=== PATIENT | female | born 1970 | race African-American/Black ===

== ENCOUNTER 2016-12-03 17:58 | Emergency (ER) | payer OTHER ==
[~2016-12-03] VITALS: Ht 172.7 cm; Wt 72.6 kg
[2016-12-03] MEDS ORDERED: [UNRECOGNIZED DRUG - REMARK] (18:09)
[2016-12-03] MEDS ORDERED: ONDANSETRON 4 MG/2 ML VIAL IV ONE (18:30)
[2016-12-03] MEDS ORDERED: IV NORMAL SALINE 1000 ML BAG IV ONE (18:30)
[2016-12-03] MEDS ORDERED: METOCLOPRAMIDE HCL 10 MG/2 ML VIAL IV ONE (18:30)
[2016-12-03] MEDS ORDERED: HYDROMORPHONE 1 MG/1 ML DISP.SYRIN IV ONE (18:30)
[2016-12-03] MEDS ORDERED: PANTOPRAZOLE SODIUM 40 MG VIAL IV ONE (18:30)
[2016-12-03] MEDS ORDERED: BENZTROPINE MESYLATE 2 MG/2 ML AMPUL IV ONE (18:30)
[2016-12-03 18:34] LABS: BASOPHILS # (AUTO) 0.1 K/uL (0.0-8.0); BASOPHILS % (AUTO) 0.6 % (0.0-2.0); EOSINOPHILS # (AUTO) 0.1 K/uL (0.0-0.7); EOSINOPHILS % (AUTO) 0.9 % (0.0-7.0); HEMATOCRIT 43.8 % (31.2-41.9); HEMOGLOBIN 14.8 g/dL (10.9-14.3); LYMPHOCYTES # (AUTO) 0.4 K/uL (40.0-85.0); LYMPHOCYTES % (AUTO) 3.7 % (20.5-51.5); MEAN CORPUSCULAR HEMOGLOBIN 28.8 uug (24.7-32.8); MEAN CORPUSCULAR HGB CONC 34 g/dL (32.3-35.6); MEAN CORPUSCULAR VOLUME 85.4 fL (75.5-95.3); MONOCYTES # (AUTO) 0.1 K/uL (2.0-10.0); MONOCYTES % (AUTO) 0.5 % (0.0-11.0); NEUTROPHILS # (AUTO) 11.2 K/uL (1.8-8.9); NEUTROPHILS % (AUTO) 94.3 % (38.5-71.5); PLATELET COUNT (AUTO) 332 K/uL (179-408); RED BLOOD CELL COUNT(AUTO) 5.13 MIL/uL (3.63-4.92); RED CELL DISTRIBUTION WIDTH 12.9 % (12.3-17.7); WHITE BLOOD COUNT (AUTO) 11.9 K/uL (3.8-11.8)
[2016-12-03] MEDS ORDERED: BENZTROPINE MESYLATE 2 MG/2 ML AMPUL ONE (18:38)
[2016-12-03] MEDS ORDERED: METOCLOPRAMIDE HCL 10 MG/2 ML VIAL ONE (18:38)
[2016-12-03] MEDS ORDERED: HYDROMORPHONE 1 MG/1 ML DISP.SYRIN ONE (18:39)
[2016-12-03] MEDS ORDERED: ONDANSETRON 4 MG/2 ML VIAL ONE (18:39)
[2016-12-03] MEDS ORDERED: PANTOPRAZOLE SODIUM 40 MG VIAL ONE (18:39)
[2016-12-03 18:48] LABS: ALBUMIN 4.2 g/dL (3.4-5.0); BILIRUBIN,DIRECT 0.1 mg/dL (0.0-0.2); BILIRUBIN,TOTAL 0.6 mg/dL (0.2-1.0); CALCIUM 9.3 mg/dL (8.5-10.1); CREATININE 1.1 mg/dL (0.6-1.3); POTASSIUM 3.4 mmol/L (3.5-5.1)
[2016-12-03] MEDS ORDERED: POTASSIUM CHLORIDE 20 MEQ TAB.PRT.SR PO ONE (19:00)
[2016-12-03] MEDS ORDERED: POTASSIUM CHLORIDE 20 MEQ TAB.PRT.SR ONE (19:11)
--- NOTE | 2016-12-03 19:50 | NUR ---
Pt states "I feel alot better now."
--- NOTE | 2016-12-03 20:00 | NUR ---
IV removed. Catheter intact and site benign. Pressure and 4x4 gauze applied to site. No bleeding noted.
--- NOTE | 2016-12-03 20:06 | NUR ---
Patient discharged to home in stable conditon with taking Pt home. Written and verbal after care instructions given. Patient verbalizes understanding of instructions. Walked out of ER with steady gait
[2016-12-03 20:07] VITALS: BP 120/72
== END 2016-12-03 20:08 | disposition home or self-care (01) ==
LOC: ER 18:15
DX: R11.2 Nausea with vomiting, unspecified (principal); R19.7 Diarrhea, unspecified; R10.9 Unspecified abdominal pain; R73.9 Hyperglycemia, unspecified
CPT/HCPCS: 36415; 80048; 80076; 83690; 84703; 85025; 96361; 96374; 96375; 99284; A4663; C9113; J0515; J1170; J2405; J2765; J7030

== ENCOUNTER 2016-12-04 08:12 | Emergency (ER) | payer OTHER ==
[~2016-12-04] VITALS: Ht 172.7 cm; Wt 72.6 kg
[~2016-12-04 08:12] MED LIST: [UNRECOGNIZED DRUG - REMARK]
[2016-12-04] MEDS ORDERED: HYDROMORPHONE 1 MG/1 ML DISP.SYRIN IV ONE (08:30)
[2016-12-04] MEDS ORDERED: PANTOPRAZOLE SODIUM 40 MG VIAL IV ONE (08:30)
[2016-12-04] MEDS ORDERED: ONDANSETRON 4 MG/2 ML VIAL IV ONE (08:30)
[2016-12-04] MEDS ORDERED: IV NORMAL SALINE 1000 ML BAG IV ONE ×2 (08:30→10:15)
[2016-12-04] MEDS ORDERED: HYDROMORPHONE 1 MG/1 ML DISP.SYRIN ONE (08:41)
[2016-12-04] MEDS ORDERED: ONDANSETRON 4 MG/2 ML VIAL ONE ×2 (08:41→09:55)
[2016-12-04] MEDS ORDERED: PANTOPRAZOLE SODIUM 40 MG VIAL ONE (08:41)
[2016-12-04 09:16] LABS: BASOPHILS # (AUTO) 0.4 K/uL (0.0-8.0); BASOPHILS % (AUTO) 3.3 % (0.0-2.0); EOSINOPHILS % (AUTO) 0.1 % (0.0-7.0); LYMPHOCYTES # (AUTO) 0.9 K/uL (40.0-85.0); LYMPHOCYTES % (AUTO) 7.4 % (20.5-51.5); MEAN CORPUSCULAR HEMOGLOBIN 29.1 uug (24.7-32.8); MEAN CORPUSCULAR HGB CONC 34 g/dL (32.3-35.6); MEAN CORPUSCULAR VOLUME 85.4 fL (75.5-95.3); MONOCYTES # (AUTO) 0.7 K/uL (2.0-10.0); MONOCYTES % (AUTO) 5.7 % (0.0-11.0); NEUTROPHILS % (AUTO) 83.5 % (38.5-71.5); PLATELET COUNT (AUTO) 316 K/uL (179-408); RED BLOOD CELL COUNT(AUTO) 4.23 MIL/uL (3.63-4.92)
[2016-12-04 09:17] LABS: CALCIUM 8.2 mg/dL (8.5-10.1); POTASSIUM 3.2 mmol/L (3.5-5.1)
[2016-12-04 09:23] LABS: ALBUMIN 3.3 g/dL (3.4-5.0); BILIRUBIN,DIRECT 0.1 mg/dL (0.0-0.2); BILIRUBIN,TOTAL 0.2 mg/dL (0.2-1.0); HEMATOCRIT 36.1 % (31.2-41.9); HEMOGLOBIN 12.3 g/dL (10.9-14.3); TOTAL PROTEIN, SERUM 6.3 g/dL (6.4-8.2)
[2016-12-04 09:35] LABS: LYMPHOCYTES % (MANUAL) 11 % (20-40); MONOCYTES % (MANUAL) 5 % (2-10); NEUTROPHILS % (MANUAL) 84 % (42-75)
[2016-12-04 09:36] LABS: PLATELET ESTIMATE ADEQUATE
[2016-12-04] MEDS ORDERED: POTASSIUM CHLORIDE 20 MEQ TAB.PRT.SR PO ONE (09:45)
[2016-12-04] MEDS ORDERED: ONDANSETRON IV *ER 4 MG/2 ML VIAL IV ONE (09:45)
[2016-12-04] MEDS ORDERED: POTASSIUM CHLORIDE 20 MEQ TAB.PRT.SR ONE (09:55)
--- NOTE | 2016-12-04 10:01 | NUR ---
Patient tolerated the water with the potassium pills. Patient is resting comfortably in bed with eyes closed, still for urine specimen. Urine pregnance test is cancelled per MD. Patient had serum test yesterday which was negative in our hospital.
--- NOTE | 2016-12-04 11:15 | NUR ---
UA discontinued by . Patient took one cup of jello and apple juice. No vomiting seen while in ER.
--- NOTE | 2016-12-04 11:18 | NUR ---
IV removed. Catheter intact and site benign. Pressure and 4x4 gauze applied to site. No bleeding noted. Patient discharged to home in stable conditon. Written and verbal after care instructions given to patient and male significant other. Patient and family verbalized understanding of instructions.
== END 2016-12-04 11:22 | disposition home or self-care (01) ==
LOC: ER 08:12
DX: A08.4 Viral intestinal infection, unspecified (principal); R11.2 Nausea with vomiting, unspecified
CPT/HCPCS: 36415; 80048; 80076; 83690; 85025; 96361; 96374; 96375; 96376; 99284; A4663; C9113; J1170; J2405 ×2; J7030 ×2

== ENCOUNTER 2016-12-07 09:15 | Emergency (ER) | payer OTHER ==
[~2016-12-07] VITALS: Ht 175.3 cm; Wt 65.8 kg
[2016-12-07 10:13] LABS: BASOPHILS # (AUTO) 0.3 K/uL (0.0-8.0); BASOPHILS % (AUTO) 3.4 % (0.0-2.0); EOSINOPHILS # (AUTO) 0.1 K/uL (0.0-0.7); EOSINOPHILS % (AUTO) 0.9 % (0.0-7.0); HEMATOCRIT 35.9 % (31.2-41.9); HEMOGLOBIN 12.2 g/dL (10.9-14.3); LYMPHOCYTES # (AUTO) 1.5 K/uL (20.0-40.0); LYMPHOCYTES % (AUTO) 16.6 % (20.5-51.5); MEAN CORPUSCULAR HGB CONC 34 g/dL (32.3-35.6); MEAN CORPUSCULAR VOLUME 85.6 fL (75.5-95.3); MONOCYTES # (AUTO) 0.4 K/uL (2.0-10.0); MONOCYTES % (AUTO) 4.2 % (0.0-11.0); NEUTROPHILS # (AUTO) 6.8 K/uL (1.8-8.9); NEUTROPHILS % (AUTO) 74.9 % (38.5-71.5); PLATELET COUNT (AUTO) 340 K/uL (179-408); RED CELL DISTRIBUTION WIDTH 12.7 % (12.3-17.7); WHITE BLOOD COUNT (AUTO) 9.1 K/uL (3.8-11.8)
[2016-12-07] MEDS ORDERED: IV NORMAL SALINE 1000 ML BAG IV ONE (10:15)
[2016-12-07] MEDS ORDERED: METOCLOPRAMIDE HCL 10 MG/2 ML VIAL IV ONE (10:15)
[2016-12-07] MEDS ORDERED: diphenhydrAMINE 50 MG/1 ML VIAL IV ONE (10:15)
[2016-12-07 10:22] LABS: CALCIUM 8.4 mg/dL (8.5-10.1); CARBON DIOXIDE 26 mmol/L (21-32); CHLORIDE 104 mmol/L (98-107); CREATININE 0.9 mg/dL (0.6-1.3); GFR 82 mL/min (>60); GLUCOSE 110 mg/dL (74-106); SODIUM SERUM 138 mmol/L (136-145); UREA NITROGEN, BLOOD 14 mg/dL (7-18)
[2016-12-07 10:23] LABS: POTASSIUM 4.2 mmol/L (3.5-5.1)
[2016-12-07] MEDS ORDERED: METOCLOPRAMIDE HCL 10 MG/2 ML VIAL ONE (10:23)
[2016-12-07] MEDS ORDERED: diphenhydrAMINE 50 MG/1 ML VIAL ONE (10:23)
[2016-12-07 10:35] LABS: ALANINE AMINOTRANSFERASE 20 U/L (14-59); ALBUMIN 3.4 g/dL (3.4-5.0); ALKALINE PHOSPHATASE 38 U/L (50-136); ASPARTATE AMINOTRANSFERASE 18 U/L (15-37); BILIRUBIN,TOTAL 0.3 mg/dL (0.1-1.0); TOTAL PROTEIN, SERUM 6.4 g/dL (6.4-8.2)
[2016-12-07 10:36] LABS: LIPASE 120 U/L (73-393)
[2016-12-07 10:51] LABS: BILIRUBIN,DIRECT < 0.1 mg/dL (0.0-0.2)
--- NOTE | 2016-12-07 11:04 | NUR ---
Pt came in c/o of teo cortes, n/v this am; dry house worker called for evaluation, pt greiving after "passing of her father".
--- NOTE | 2016-12-07 11:59 | NUR ---
Scial worker w/ pt at this time.
--- NOTE | 2016-12-07 13:14 | NUR ---
Pt dc;ed home w/ aci, pt ambulatory upon dc.
[2016-12-07 13:15] VITALS: BP 130/74
--- NOTE | 2016-12-07 14:21 | NUR ---
SW met with patient at 12noon, per SW consult request from RUIZ Ovalle. Patient was receptive to meeting with SW, presented alert, oriented, cooperative. SW gathered some basic psychosocial information. Patient maintained appropriate eye contact with SW during interview, her tone of voice was slightly low, speech was clear. Patient is a 45 y/o female, who recently moved to [place] and lives with her boyfriend and her 10 year old daughter. Patient reported visiting the ER a couple of times last week due to different physical symptoms, and coming into the ER today due to a reoccurrence of the same physical symptoms as last week. Patient reported such symptoms as nausea, vomiting, stomach pain, stomach discomfort. Patient reported several recent stressors in her life, including going through divorce and child custody proceedings with her ex-, a recent move to a new city, and her father's current hospitalization due to several recent strokes. Patient became tearful on and off during the interview when discussing these stressors. SW provided supportive counseling and provided education on the emotional, mental, and physical responses one can have to stress and situational crises. SW assessed for hx or current substance use, and patient reported having marijuana brownies in the past, but no use of any drugs on a consistent basis. Patient reported no hx of mental illness, although stated having seen a psychiatrist in the past for some short term counseling. No SI or HI present; no hx of SI. SW assisted patient with exploring and identifying some coping strategies she has used in the past and how they have helped her with managing stress. Patient stated that prayer, spirituality, and yoga/meditation have helped her in the past. SW then assisted patient with identifying which problems she wanted help with at this time, to which patient responded wanting counseling services for herself and her daughter. ESTUARDO provided patient with resources for outpatient mental health counseling agencies: [facility] ([address] [place] [address], ), [facility] ([address] [facility] [place] [address], ), and [facility] ([address] [place] [address], ). Patient thanked ESTUARDO for her time and for her help. ESTUARDO then met with Dr. Hager and updated him on all above information.
== END 2016-12-07 13:16 | disposition home or self-care (01) ==
LOC: ER 09:15
DX: R11.2 Nausea with vomiting, unspecified (principal); F43.9 Reaction to severe stress, unspecified; K21.9 Gastro-esophageal reflux disease without esophagitis
CPT/HCPCS: 36415; 70030-TC; 83690; 84703; 85025; A4663; J1200; J2765; J7030

== ENCOUNTER 2017-03-02 07:15 | Emergency (ER) | payer OTHER ==
[~2017-03-02] VITALS: Ht 172.7 cm; Wt 72.6 kg
--- NOTE | 2017-03-02 07:42 | NUR ---
patient was seen by MD for c/o nausea, vomiting and pain. IV placed.
[2017-03-02] MEDS ORDERED: IV NORMAL SALINE 1000 ML BAG IV ONE (07:45)
[2017-03-02] MEDS ORDERED: ONDANSETRON 4 MG/2 ML VIAL IV ONE (07:45)
[2017-03-02] MEDS ORDERED: LIDOCAINE VISCUS 2% 15 ML UDC MM ONE ×2 (07:45→09:00)
[2017-03-02] MEDS ORDERED: FAMOTIDINE. 20 MG/2 ML VIAL IV ONE ×2 (07:45→08:05)
[2017-03-02] MEDS ORDERED: MAG HYDROX/AL HYDROX/SIMETH 30 ML LIQUID UDC PO ONE ×2 (07:45→09:00)
--- NOTE | 2017-03-02 07:50 | NUR ---
PATIENT HAS HAD 2 EPISODES OF VOMITING.
[2017-03-02 08:00] LABS: WHITE BLOOD COUNT (AUTO) 11.4 K/UL (4.0-11.2)
[2017-03-02 08:01] LABS: BASOPHILS # (AUTO) 0.3 K/uL (0.0-8.0); BASOPHILS % (AUTO) 2.6 % (0.0-2.0); EOSINOPHILS # (AUTO) 0.3 K/uL (0.0-0.7); EOSINOPHILS % (AUTO) 2.4 % (0.0-7.0); HEMATOCRIT 41.7 % (37-47); HEMOGLOBIN 13.7 G/DL (12.0-16.0); LYMPHOCYTES # (AUTO) 2.4 K/UL (0.8-4.8); MEAN CORPUSCULAR HEMOGLOBIN 28.3 UUG (27.0-31.0); MEAN CORPUSCULAR HGB CONC 33 g/dL (32.0-37.0); MONOCYTES # (AUTO) 0.7 K/UL (0.1-1.30); MONOCYTES % (AUTO) 6.3 % (0.0-11.0); NEUTROPHILS # (AUTO) 7.7 K/UL (1.8-8.9); NEUTROPHILS % (AUTO) 67.7 % (38.5-71.5); PLATELET COUNT (AUTO) 411 K/UL (150-450); RED BLOOD CELL COUNT(AUTO) 4.85 MIL/UL (4.2-5.4)
[2017-03-02] MEDS ORDERED: ONDANSETRON 4 MG/2 ML VIAL ONE (08:05)
[2017-03-02] MEDS ORDERED: LIDOCAINE VISCUS 2% 15 ML UDC ONE ×2 (08:05→09:02)
[2017-03-02] MEDS ORDERED: MAG HYDROX/AL HYDROX/SIMETH 30 ML LIQUID UDC ONE ×2 (08:05→09:02)
[2017-03-02 08:12] LABS: CARBON DIOXIDE 25 mmol/L (21-32); CHLORIDE 105 mmol/L (98-107); GLUCOSE 104 mg/dL (74-106); POTASSIUM 4.5 mmol/L (3.5-5.1); UREA NITROGEN, BLOOD 14 mg/dL (7-18)
[2017-03-02 08:18] LABS: ALANINE AMINOTRANSFERASE 18 U/L (14-59); ALKALINE PHOSPHATASE 57 U/L (50-136); ASPARTATE AMINOTRANSFERASE 23 U/L (15-37); BILIRUBIN,DIRECT < 0.1 mg/dL (0.0-0.2); BILIRUBIN,TOTAL 0.3 mg/dL (0.2-1.0); LIPASE 145 U/L (73-393); TOTAL PROTEIN, SERUM 7.5 g/dL (6.4-8.2)
[2017-03-02 08:19] LABS: *BILIRUBIN,URIN NEGATIVE (NEGATIVE); *BLOOD, URINE 2+ (NEGATIVE); *CLARITY,URINE CLEAR (CLEAR); *COLOR,URINE YELLOW (YELLOW); *KETONES,URINE NEGATIVE (NEGATIVE); *PROTEIN,URINE 1+ (NEGATIVE); LEUKOCYTE ESTERASE ,URINE NEGATIVE (NEGATIVE); NITRITE, URINE NEGATIVE (NEGATIVE); UGLUCOSE NEGATIVE (NEGATIVE)
[2017-03-02 08:22] LABS: *URINE HCG, QUAL NEGATIVE (NEGATIVE)
--- NOTE | 2017-03-02 08:26 | NUR ---
MEDICATIONS GIVEN ORDERED. PATIENT IS NOT VOMITING AT THIS TIME.
--- NOTE | 2017-03-02 08:36 | NUR ---
PATIENT STATES SHE HAS NAUSEA AGAIN "REAL BAD". STATES SHE WANTS ANOTHER NAUSEA MED, STATES SHE WANTS REGLAN. I NOTIFIED DR FINLEY. REGLAN GIVEN ORDERED.
[2017-03-02 08:43] LABS: BACTERIA,URINE FEW /HPF (NONE SEEN); SQUAMOUS EPITHELIAL CELL,UR MANY /HPF (NONE SEEN); URINE AMORPHOUS PHOSPHATES MODERATE /HPF; WBC,URINE 0-3 /HPF (0-3)
[2017-03-02] MEDS ORDERED: METOCLOPRAMIDE HCL 10 MG/2 ML VIAL IV ONE (08:45)
[2017-03-02 08:46] LABS: EOSINOPHILS % (MANUAL) 2 % (0-8); LYMPHOCYTES % (MANUAL) 25 % (20-40); MONOCYTES % (MANUAL) 5 % (2-10); NEUTROPHILS % (MANUAL) 68 % (42-75)
[2017-03-02] MEDS ORDERED: METOCLOPRAMIDE HCL 10 MG/2 ML VIAL ONE (08:46)
--- NOTE | 2017-03-02 08:51 | NUR ---
PATIENT STATES "I WANT DILAUDUD NOW FOR MY STOMACH CRAMPS". I NOTIFIED DR FINLEY.
--- NOTE | 2017-03-02 09:01 | NUR ---
pATIENT REQUESTS A SECOND "GI COCKTAIL". DR FINLEY NOTIFIED. MED GIVEN ORDERED.
--- NOTE | 2017-03-02 09:03 | NUR ---
PATIENT STATES "I WANT TO BE DISCHARGED NOW, I FEEL BETTER". SHE PULLED HER OWN IV OUT. IV CATHETER TIP WAS INTACT, SHE HAD HER HAND OVER THE SITE. I CLEANED THE AREA AND PLACED A CLEAN GAUZE AND DRESSING OVER IT.
--- NOTE | 2017-03-02 09:10 | NUR ---
DC, RX AND FOLLOPW UP ISNTRUCTIONS GIVEN AND EXPLAINED TO PATIENT WHO STATES SHE UNDERSTANDS ALL INSTRUCTIONS.
== END 2017-03-02 09:11 | disposition home or self-care (01) ==
LOC: ER 07:15
DX: R10.13 Epigastric pain (principal); R11.2 Nausea with vomiting, unspecified; J45.909 Unspecified asthma, uncomplicated
CPT/HCPCS: 36415; 80048; 80076; 81001; 83690; 84484; 84703; 85025; 93005; 96361; 96374; 96375; 99285; A4663; J2405; J2765; J3490 ×2; J7030; 70030-TC

== ENCOUNTER 2017-04-25 23:40 | Emergency (ER) | payer MEDICAID, OTHER ==
[~2017-04-25] VITALS: Ht 172.7 cm; Wt 68.9 kg
--- NOTE | 2017-04-26 | NUR ---
DR BLAND INT EVAL PATIENT
--- NOTE | 2017-04-26 00:24 | NUR ---
Patient discharged to home in stable conditon. Written and verbal after care instructions given. Patient verbalizes understanding of instructions.
== END 2017-04-26 00:26 | disposition home or self-care (01) ==
LOC: ER 23:45
DX: R21 Rash and other nonspecific skin eruption (principal); J45.909 Unspecified asthma, uncomplicated
CPT/HCPCS: A4663

== ENCOUNTER 2017-08-14 13:17 | Emergency (ER) | payer MEDICAID, OTHER ==
[~2017-08-14] VITALS: Ht 177.8 cm; Wt 63.5 kg
[2017-08-14] MEDS ORDERED: IPRATROPIUM BROMIDE 0.5 MG/2.5 ML NEBU NEB ONE (13:26)
--- NOTE | 2017-08-14 13:27 | NUR ---
PT STATES USING HER ASTHMA INHALER AT HOME BUT NOT USEFULL.
[2017-08-14] MEDS ORDERED: IV NS 1000 ML 1,000 ML IV ONE (13:30)
[2017-08-14] MEDS ORDERED: methylPREDNISolone SOD SUCC 125 MG/2 ML VIAL IV ONE (13:30)
[2017-08-14] MEDS ORDERED: ALBUTEROL SULFATE 2.5 MG/3 ML NEBU NEB ONE (13:30)
[2017-08-14 13:44] LABS: BASOPHILS % (AUTO) 0.8 % (0.0-2.0); EOSINOPHILS % (AUTO) 0.6 % (0.0-7.0); HEMATOCRIT 41.3 % (31.2-41.9); HEMOGLOBIN 13.6 g/dL (10.9-14.3); LYMPHOCYTES # (AUTO) 0.3 K/uL (20.0-40.0); LYMPHOCYTES % (AUTO) 5.7 % (20.5-51.5); MEAN CORPUSCULAR HEMOGLOBIN 28.5 uug (24.7-32.8); MEAN CORPUSCULAR HGB CONC 33 g/dL (32.3-35.6); MEAN CORPUSCULAR VOLUME 86.5 fL (75.5-95.3); MONOCYTES # (AUTO) 0.6 K/uL (2.0-10.0); MONOCYTES % (AUTO) 10.5 % (0.0-11.0); NEUTROPHILS # (AUTO) 4.7 K/uL (1.8-8.9); NEUTROPHILS % (AUTO) 82.4 % (38.5-71.5); PLATELET COUNT (AUTO) 331 K/uL (179-408); RED BLOOD CELL COUNT(AUTO) 4.77 MIL/uL (3.63-4.92); WHITE BLOOD COUNT (AUTO) 5.7 K/uL (3.8-11.8)
[2017-08-14] MEDS ORDERED: ALBUTEROL SULFATE 2.5 MG/3 ML NEBU ONE (13:51)
[2017-08-14] MEDS ORDERED: IPRATROPIUM BROMIDE 0.5 MG/2.5 ML NEBU ONE (13:51)
[2017-08-14 13:53] LABS: CREATININE 0.8 mg/dL (0.6-1.3); POTASSIUM 3.6 mmol/L (3.5-5.1)
--- NOTE | 2017-08-14 14:05 | NUR ---
IV PLACED,LAB DANIEL BLOOD, MEDICATION ADMINISTERED, 1L 0.9NS INFUSING, PT REC'D RESP TX.
[2017-08-14 14:11] LABS: BILIRUBIN,TOTAL 0.3 mg/dL (0.2-1.0); TOTAL PROTEIN, SERUM 7.3 g/dL (6.4-8.2)
[2017-08-14] MEDS ORDERED: methylPREDNISolone SOD SUCC 125 MG/2 ML VIAL ONE (14:12)
--- NOTE | 2017-08-14 15:04 | NUR ---
I assisted the MD with patient's bilateral groin exam for possible palpable mass to both groin.
--- NOTE | 2017-08-14 15:15 | NUR ---
MSE COMPLETED, IV D/C'D ,ACI/RX X3 GIVEN. PT AMBULATED W/O DIFF/TOOK ALL BELONGINGS.
[2017-08-14 15:16] VITALS: BP 112/82
== END 2017-08-14 15:18 | disposition home or self-care (01) ==
LOC: ER 13:18
DX: J45.909 Unspecified asthma, uncomplicated (principal)
CPT/HCPCS: 36415; 71010; 80053; 85025; 94640; 96361; 96374; 99285; A4663; J2930; J3590; J7030

== ENCOUNTER 2017-08-16 05:21 | Inpatient (IN) | payer OTHER ==
[~2017-08-16] VITALS: Ht 172.7 cm; Wt 68.0 kg
[2017-08-16] MEDS ORDERED: TERBUTALINE SULFATE 1 MG/1 ML VIAL SQ ONE (05:30)
[2017-08-16] MEDS ORDERED: ALBUTEROL SULFATE 2.5 MG/3 ML NEBU NEB ONE (05:30)
[2017-08-16] MEDS ORDERED: methylPREDNISolone SOD SUCC 125 MG/2 ML VIAL IV ONE (05:30)
[2017-08-16] MEDS ORDERED: IPRATROPIUM BROMIDE 0.5 MG/2.5 ML NEBU NEB ONE (05:30)
[2017-08-16] MEDS ORDERED: IPRATROPIUM BROMIDE 0.5 MG/2.5 ML NEBU ONE (05:46)
[2017-08-16] MEDS ORDERED: ALBUTEROL SULFATE 2.5 MG/ 0.5 ML NEBU ONE (05:46)
[2017-08-16] MEDS ORDERED: ALBUTEROL SULFATE 2.5 MG/3 ML NEBU ONE (05:46)
[2017-08-16] MEDS ORDERED: TERBUTALINE SULFATE 1 MG/1 ML VIAL ONE (05:49)
[2017-08-16] MEDS ORDERED: methylPREDNISolone SOD SUCC 125 MG/2 ML VIAL ONE (05:51)
[2017-08-16 06:05] LABS: BASOPHILS # (AUTO) 0.1 K/uL (0.0-8.0); BASOPHILS % (AUTO) 0.6 % (0.0-2.0); HEMATOCRIT 43.5 % (31.2-41.9); HEMOGLOBIN 14.6 g/dL (10.9-14.3); MEAN CORPUSCULAR HEMOGLOBIN 28.9 uug (24.7-32.8); MEAN CORPUSCULAR HGB CONC 33 g/dL (32.3-35.6); MEAN CORPUSCULAR VOLUME 86.6 fL (75.5-95.3); MONOCYTES # (AUTO) 0.9 K/uL (2.0-10.0); MONOCYTES % (AUTO) 8.6 % (0.0-11.0); NEUTROPHILS # (AUTO) 7.2 K/uL (1.8-8.9); NEUTROPHILS % (AUTO) 70.8 % (38.5-71.5); PLATELET COUNT (AUTO) 328 K/uL (179-408); RED BLOOD CELL COUNT(AUTO) 5.03 MIL/uL (3.63-4.92); WHITE BLOOD COUNT (AUTO) 10.1 K/uL (3.8-11.8)
[2017-08-16 06:08] LABS: CREATININE 0.9 mg/dL (0.6-1.3); POTASSIUM 3.4 mmol/L (3.5-5.1)
[2017-08-16] MEDS ORDERED: ALBUTEROL SULFATE 2.5 MG/ 0.5 ML NEBU NEB ONE (06:15)
[2017-08-16 06:20] LABS: BILIRUBIN,DIRECT 0.1 mg/dL (0.0-0.2); BILIRUBIN,TOTAL 0.2 mg/dL (0.2-1.0); TOTAL PROTEIN, SERUM 7.4 g/dL (6.4-8.2)
[2017-08-16] MEDS ORDERED: MAGNESIUM HYDROXIDE 30 ML LIQUID UDC PO PRN (06:30)
[2017-08-16] MEDS ORDERED: ONDANSETRON 4 MG/2 ML VIAL IV PRN (06:30)
[2017-08-16] MEDS ORDERED: ACETAMINOPHEN 325 MG TABLET PO PRN (06:30)
[2017-08-16] MEDS ORDERED: HYDROCODONE/APAP 5-325MG TABLET PO PRN (06:30)
[2017-08-16] MEDS ORDERED: Z GUARD REMEDY PASTE 57 GM TUBE TOP PRN (06:30)
[2017-08-16] MEDS ORDERED: IV NORMAL SALINE 1000 ML BAG IV ONE ×2 (06:45→09:30)
--- NOTE | 2017-08-16 07:00 | NUR ---
pt being admitted at [address] singer to tele. pt transfer to room pending on bed availability. automobile mechanic supervisor aware.
[2017-08-16] MEDS: IPRATROPIUM BROMIDE 0.5 MG/2.5 ML NEBU NEB PRN ×2 (07:01→16:43)
[2017-08-16] MEDS: ALBUTEROL SULFATE 2.5 MG/3 ML NEBU NEB PRN ×2 (07:01→16:43)
--- NOTE | 2017-08-16 07:05 | NUR ---
recieved pt in bed, bi pap machine working well. no sign of distress.
--- NOTE | 2017-08-16 08:40 | NUR ---
pt weaned off the bipap to see how the pt tolerates nc 3 litre. o2 maintained at 98%.
--- NOTE | 2017-08-16 08:50 | NUR ---
pt mason downey, although a little bit nervous. pt requesting food. hospital tray provided for pt.
--- NOTE | 2017-08-16 09:28 | NUR ---
pt comfortable, nc 3 litre, eubreathing.99%
--- NOTE | 2017-08-16 09:50 | NUR ---
pt c/o drlucas coughs. er notified. cough med orderred.
--- NOTE | 2017-08-16 09:54 | NUR ---
pt sister at bed time. pt talking in full sentences with sister at bedside and on the phone
[2017-08-16] MEDS ORDERED: GUAIFENESIN/CODEINE 5 ML LIQUID UDC PO ONE (10:00)
[2017-08-16] MEDS ORDERED: GUAIFENESIN/CODEINE 5 ML LIQUID UDC ONE (10:05)
--- NOTE | 2017-08-16 10:11 | NUR ---
pt requersted to ambulate to bathroom.
--- NOTE | 2017-08-16 10:15 | NUR ---
pt back from bathroom, became labored breathing and 90% ra. nc placed and o2 maintaiend to 98%
--- NOTE | 2017-08-16 10:55 | NUR ---
transfered pt to tele in stable condition.
[2017-08-16 11:36] VITALS: BP 120/78
[2017-08-16] MEDS ORDERED: methylPREDNISolone SOD SUCC 125 MG/2 ML VIAL IV SCH (12:00)
[2017-08-16 15:40] VITALS: BP 129/75
--- NOTE | 2017-08-16 16:00 | NUR ---
Received patient in stable condition 1100, patient seem nervous and anxious . V/S wnl, NC 2L on placed. Admission information documented, as well as physical assessment. Urine sample was sent to lab for test. Patient c/o of SOB and headaches, and stated " I don't feel good" Called RT for breathing treatment, O2 SAT 95% BP 132/90 hr 90. Tylenol as given as ordered. Encourage patient to use relaxation techniques, sister at the bedside. Will continue monitoring.
[2017-08-16] MEDS: methylPREDNISolone SOD SUCC 125 MG/2 ML VIAL IV SCH (17:04)
--- NOTE | 2017-08-16 19:32 | NUR ---
PATIENT IN BED IN STABLE CONDITION. NO S/S OF DISTRESS OR SOB. SAFETY AND COMFORT PROVIDED BY STAFF. REPORT WAS GIVEN TO RUIZ FALK.
[2017-08-16 20:00] VITALS: BP 110/54
--- NOTE | 2017-08-16 20:00 | NUR ---
PATIENT RESTING , NO S/S OF ACUTE RESPIRATORY DISTRESS NOTED,ON O2 2L/M VIA N/C, O2 SAT 98%, NO SOB, NO COUGH NOTED, PATIENT SEEN BY DR. POPE,PLAN OF CARE EXPLAINED AND PATIENT VERBALIZED UNDERSTANDING.
[2017-08-16] MEDS: LEVOFLOXACIN 500 MG/D5W 500 MG in PREMIXED 1 EACH IV SCH (20:27)
[2017-08-16] MEDS: HYDROCODONE/APAP 5-325MG TABLET PO PRN (21:15)
[2017-08-17] VITALS: BP 115/59
[2017-08-17 04:00] VITALS: BP 127/75
[2017-08-17] MEDS: ALBUTEROL SULFATE 2.5 MG/3 ML NEBU NEB PRN ×3 (06:13→21:45)
[2017-08-17] MEDS: IPRATROPIUM BROMIDE 0.5 MG/2.5 ML NEBU NEB PRN ×3 (06:13→21:45)
[2017-08-17] MEDS: methylPREDNISolone SOD SUCC 125 MG/2 ML VIAL IV SCH ×4 (06:16→21:31)
[2017-08-17 07:32] LABS: THYROID STIMULATING HORMONE 0.432 mIU/mL (0.358-3.740)
[2017-08-17 07:33] LABS: BASOPHILS % (AUTO) 0.1 % (0.0-2.0); HEMOGLOBIN 14.6 g/dL (10.9-14.3); LYMPHOCYTES # (AUTO) 0.9 K/uL (20.0-40.0); LYMPHOCYTES % (AUTO) 10.6 % (20.5-51.5); MEAN CORPUSCULAR HEMOGLOBIN 29.6 uug (24.7-32.8); MEAN CORPUSCULAR HGB CONC 34 g/dL (32.3-35.6); MEAN CORPUSCULAR VOLUME 87.1 fL (75.5-95.3); MONOCYTES # (AUTO) 0.5 K/uL (2.0-10.0); MONOCYTES % (AUTO) 5.7 % (0.0-11.0); NEUTROPHILS # (AUTO) 7.1 K/uL (1.8-8.9); NEUTROPHILS % (AUTO) 83.6 % (38.5-71.5); PLATELET COUNT (AUTO) 340 K/uL (179-408); RED BLOOD CELL COUNT(AUTO) 4.94 MIL/uL (3.63-4.92); WHITE BLOOD COUNT (AUTO) 8.5 K/uL (3.8-11.8)
[2017-08-17 07:34] LABS: PHOSPHOROUS 4.8 mg/dL (2.5-4.9); POTASSIUM 3.7 mmol/L (3.5-5.1)
[2017-08-17 07:44] LABS: MAGNESIUM 2.1 mg/dL (1.8-2.4)
--- NOTE | 2017-08-17 08:00 | NUR ---
AWAKE COOPERATE WELL NO SOB OR PAIN AT THIS TIME RESTING WELL WITH CALL LIGHT IN REACH AND REMIND TO CALL WHEN NEEDED
[2017-08-17 11:09] VITALS: BP_SYST 104; BP_SYST 94; BP_DIAS 58
[2017-08-17] MEDS ORDERED: LORAZEPAM 2 MG/1 ML VIAL IV PRN (11:30)
--- NOTE | 2017-08-17 12:00 | NUR ---
DR POPE SEEN PATIENT AND ORDER IN CHART
[2017-08-17] MEDS: HYDROCODONE/APAP 5-325MG TABLET PO PRN ×3 (12:22→21:42)
[2017-08-17 15:06] VITALS: BP 123/71
--- NOTE | 2017-08-17 17:00 | NUR ---
STABLE HEMODYNAMIC NO ACUTE DISTRESS CONTINUE O2 AT 2L O2 SAT WNL ,PAIN UNDER CONTROL SAFETY MEASURE PROVIDED CALL LIGHT IN REACH
[2017-08-17 20:00] VITALS: BP 113/62
[2017-08-17] MEDS: LEVOFLOXACIN 500 MG/D5W 500 MG in PREMIXED 1 EACH IV SCH (20:51)
[2017-08-18] MEDS: ALBUTEROL SULFATE 2.5 MG/3 ML NEBU NEB PRN ×3 (05:15→17:27)
[2017-08-18] MEDS: IPRATROPIUM BROMIDE 0.5 MG/2.5 ML NEBU NEB PRN ×3 (05:15→17:27)
[2017-08-18] MEDS: methylPREDNISolone SOD SUCC 125 MG/2 ML VIAL IV SCH ×2 (05:23→13:34)
[2017-08-18 05:57] VITALS: BP 124/71
--- NOTE | 2017-08-18 06:18 | NUR ---
SLEPT MOST OF THE NIGHT, NO SOB NO CHEST PAIN, CONT HHN TX FOR COUGHING AND CONGESTION, MEDICATED WITH PAIN WITH HELP, CONT TO MONITOR.
[2017-08-18] MEDS: HYDROCODONE/APAP 5-325MG TABLET PO PRN ×2 (06:48→17:19)
--- NOTE | 2017-08-18 08:00 | NUR ---
ORIENTED X3 NO SIGNS OF DISTRESS WITH 1L NC 02. CONTINUE ONGOING ANTIBIOTIC. AFEBRILE
[2017-08-18 11:50] VITALS: BP 111/73
--- NOTE | 2017-08-18 12:23 | NUR ---
TOLERATING 1L 02 VIA MASK SATURATING 95-97%. STILL C/O SOB ON EXERTION. CLOSELY MONITORED
[2017-08-18 15:46] VITALS: BP 122/78
[2017-08-18] MEDS ORDERED: ALBU18HF2 INH (17:27)
[2017-08-18] MEDS ORDERED: ALPR0.255 PO (17:27)
[2017-08-18] MEDS ORDERED: METH4TAB3 PO (17:27)
[2017-08-18] MEDS ORDERED: LEVO500T2 PO (17:27)
[2017-08-18] MEDS: LEVOFLOXACIN 500 MG/D5W 500 MG in PREMIXED 1 EACH IV SCH (17:49)
--- NOTE | 2017-08-18 18:07 | NUR ---
SEEN BY DR POPE WITH ORDER FOR DISCHARGE
--- NOTE | 2017-08-18 20:45 | NUR ---
PATIENT DISCHARGE HOME PMO CONSULTANT BY SISTER IN FAIR STABLE CONDITION. TOOK ALL BELONGINGS.
== END 2017-08-18 20:45 | disposition home or self-care (01) | DRG 144 ==
LOC: ER 05:23 → TELE 10:44 → MED 08-17 13:08
PROVIDERS: ATTEND Internal Medicine
DX: J20.9 Acute bronchitis, unspecified (principal); J45.901 Unspecified asthma with (acute) exacerbation; A49.9 Bacterial infection, unspecified; Z82.3 Family history of stroke; Z87.828 Personal history of other (healed) physical injury and trauma; F41.9 Anxiety disorder, unspecified; Z87.11 Personal history of peptic ulcer disease; R59.0 Localized enlarged lymph nodes; I49.9 Cardiac arrhythmia, unspecified
CPT/HCPCS: 36415; 70030-TC; 71010; 83735; 84100; 84443; 84703; 85025; 93005; 94640; 94664; A4663; J1956; J2405; J2930; J3105; J3590; J7030; J7050

== ENCOUNTER 2017-08-28 17:14 | Emergency (ER) | payer OTHER ==
[~2017-08-28 17:14] MED LIST changes: +ALBU18HF2 INH; +ALPR0.255 PO; +LEVO500T2 PO; +METH4TAB3 PO
--- NOTE | 2017-08-28 17:52 | NUR ---
CALLED 3 TIMES AND NO ANSWER.
== END 2017-08-28 17:53 | disposition left against medical advice (07) ==
LOC: ER 17:15
DX: Z53.21 Procedure and treatment not carried out due to patient leaving prior to being seen by health care provider (principal)

== ENCOUNTER 2017-08-30 14:50 | Emergency (ER) | payer OTHER ==
[~2017-08-30] VITALS: Ht 172.7 cm; Wt 68.0 kg
--- NOTE | 2017-08-30 16:17 | NUR ---
PT IS IN ROOM #1A. DR NAVARRO EVALUATED THE PT.
[2017-08-30 17:07] LABS: *URINE HCG, QUAL NEGATIVE (NEGATIVE)
[2017-08-30 17:32] VITALS: BP 136/76
--- NOTE | 2017-08-30 17:33 | NUR ---
PT WAS D/C TO HOME. D/C INSTRUCTIONS GIVEN TO THE PT BY DR NAVARRO.
== END 2017-08-30 17:34 | disposition home or self-care (01) ==
LOC: ER 14:51
DX: J45.909 Unspecified asthma, uncomplicated (principal)
CPT/HCPCS: 70490; 84703; A4663

== ENCOUNTER 2018-03-29 17:29 | Emergency (ER) | payer OTHER ==
[~2018-03-29] VITALS: Ht 175.3 cm; Wt 72.6 kg
--- NOTE | 2018-03-29 18:06 | NUR ---
Patient discharged to home in stable conditon. Written and verbal after care instructions given. Patient verbalizes understanding of instructions.PT WALKS IN STEADY GAIT. EUBREATHING
== END 2018-03-29 18:10 | disposition home or self-care (01) ==
LOC: ER 17:30
DX: R06.00 Dyspnea, unspecified (principal); J45.909 Unspecified asthma, uncomplicated
CPT/HCPCS: 71045; 99283; A4663

== ENCOUNTER 2018-05-30 20:42 | Emergency (ER) | payer OTHER ==
[~2018-05-30] VITALS: Ht 172.7 cm; Wt 72.6 kg
[~2018-05-30 20:42] MED LIST changes: -LEVO500T2 PO; -METH4TAB3 PO; -[UNRECOGNIZED DRUG - REMARK]
[2018-05-30] MEDS ORDERED: ALBUTEROL SULFATE 2.5 MG/3 ML NEBU ONE ×2 (21:08→23:08)
[2018-05-30] MEDS ORDERED: IPRATROPIUM BROMIDE 0.5 MG/2.5 ML NEBU ONE (21:08)
[2018-05-30] MEDS ORDERED: ALBUTEROL SULFATE 2.5 MG/3 ML NEBU NEB ONE ×2 (21:15→23:15)
[2018-05-30] MEDS ORDERED: predniSONE 10 MG TABLET PO ONE (21:15)
[2018-05-30] MEDS ORDERED: IPRATROPIUM BROMIDE 0.5 MG/2.5 ML NEBU NEB ONE (21:15)
[2018-05-30] MEDS ORDERED: predniSONE 20 MG TABLET ONE (21:29)
[2018-05-30] MEDS ORDERED: LORAZEPAM 0.5 MG TABLET ONE (21:42)
[2018-05-30] MEDS ORDERED: LORAZEPAM 0.5 MG TABLET PO ONE (21:45)
[2018-05-31 00:21] VITALS: BP 126/78
== END 2018-05-31 00:22 | disposition home or self-care (01) ==
LOC: ER 20:42
DX: J45.901 Unspecified asthma with (acute) exacerbation (principal); J20.8 Acute bronchitis due to other specified organisms; B97.89 Other viral agents as the cause of diseases classified elsewhere
CPT/HCPCS: 71045; A4663; J3590; J7512

== ENCOUNTER 2019-01-20 17:22 | Emergency (ER) | payer MEDICAID, OTHER ==
[~2019-01-20] VITALS: Ht 172.7 cm; Wt 68.0 kg
--- NOTE | 2019-01-20 17:38 | NUR ---
PT A/OX4, PRESENTS TO THE ER C/O EPIGASTRIC PAIN W/ NAUSEA, INTRACTABLE VOMITING, AND DIARRHEA SINCE THIS AM. ABD PAIN IS NON-PROVOKED, SHARP IN QUALITY, DOES NOT RADIATE, 10/10, CONSTANT. PT DENIES HEMATEMESIS. VSS. PT DENIES C/P, SOB, DIZZINESS, HEADACHE.
--- NOTE | 2019-01-20 17:40 | NUR ---
KERVIN MUNSON AT BEDSIDE FOR MSE.
[2019-01-20 17:57] LABS: *BILIRUBIN,URIN 1+ (NEGATIVE); *CLARITY,URINE CLOUDY (CLEAR); *KETONES,URINE 3+ (NEGATIVE); *UROBILINOGEN,URINE 0.2 E.U./dl (NORMAL); LEUKOCYTE ESTERASE ,URINE NEGATIVE (NEGATIVE); NITRITE, URINE NEGATIVE (NEGATIVE); UGLUCOSE NEGATIVE (NEGATIVE)
[2019-01-20] MEDS ORDERED: IV NORMAL SALINE 1000 ML BAG IV ONE ×2 (18:00→19:30)
[2019-01-20] MEDS ORDERED: IPRATROPIUM BROMIDE 0.5 MG/2.5 ML NEBU NEB ONE (18:00)
[2019-01-20] MEDS ORDERED: PANTOPRAZOLE SODIUM 40 MG VIAL IV ONE (18:00)
[2019-01-20] MEDS ORDERED: HYDROMORPHONE 1 MG/1 ML DISP.SYRIN IV ONE (18:00)
[2019-01-20] MEDS ORDERED: ALBUTEROL SULFATE 2.5 MG/3 ML NEBU NEB ONE (18:00)
[2019-01-20] MEDS ORDERED: ONDANSETRON 4 MG/2 ML VIAL IV ONE (18:00)
[2019-01-20] MEDS ORDERED: ALBUTEROL SULFATE 2.5 MG/3 ML NEBU ONE (18:04)
[2019-01-20] MEDS ORDERED: IPRATROPIUM BROMIDE 0.5 MG/2.5 ML NEBU ONE (18:04)
[2019-01-20] MEDS ORDERED: PANTOPRAZOLE SODIUM 40 MG VIAL ONE (18:05)
[2019-01-20] MEDS ORDERED: ONDANSETRON 4 MG/2 ML VIAL ONE (18:05)
[2019-01-20] MEDS ORDERED: HYDROMORPHONE 1 MG/1 ML DISP.SYRIN ONE (18:05)
[2019-01-20 18:07] LABS: BASOPHILS # (AUTO) 0.1 K/uL (0.0-8.0); BASOPHILS % (AUTO) 1.3 % (0.0-2.0); EOSINOPHILS # (AUTO) 0.1 K/uL (0.0-0.7); EOSINOPHILS % (AUTO) 0.6 % (0.0-7.0); HEMOGLOBIN 13.3 g/dL (10.9-14.3); LYMPHOCYTES # (AUTO) 1.5 K/uL (20.0-40.0); LYMPHOCYTES % (AUTO) 16.2 % (20.5-51.5); MEAN CORPUSCULAR HEMOGLOBIN 28.7 uug (24.7-32.8); MEAN CORPUSCULAR HGB CONC 33 g/dL (32.3-35.6); MEAN CORPUSCULAR VOLUME 86.5 fL (75.5-95.3); MONOCYTES # (AUTO) 0.5 K/uL (2.0-10.0); MONOCYTES % (AUTO) 5.5 % (0.0-11.0); NEUTROPHILS # (AUTO) 7.1 K/uL (1.8-8.9); NEUTROPHILS % (AUTO) 76.4 % (38.5-71.5); PLATELET COUNT (AUTO) 401 K/uL (179-408); RED BLOOD CELL COUNT(AUTO) 4.63 MIL/uL (3.63-4.92); WHITE BLOOD COUNT (AUTO) 9.3 K/uL (3.8-11.8)
[2019-01-20 18:11] LABS: CREATININE 0.7 mg/dL (0.6-1.3); POTASSIUM 3.8 mmol/L (3.5-5.1)
[2019-01-20 18:16] LABS: *BLOOD, URINE TRACE (NEGATIVE); *COLOR,URINE DARK YELLOW (YELLOW)
[2019-01-20 18:17] LABS: BILIRUBIN,DIRECT 0.1 mg/dL (0.0-0.2); BILIRUBIN,TOTAL 0.4 mg/dL (0.2-1.0); TOTAL PROTEIN, SERUM 7.5 g/dL (6.4-8.2)
[2019-01-20 18:18] LABS: BACTERIA,URINE MODERATE /HPF (NONE SEEN); MUCUS,URINE MANY /LPF (0-FEW); SQUAMOUS EPITHELIAL CELL,UR MANY /HPF (NONE SEEN); WBC,URINE 0-3 /HPF (0-3)
--- NOTE | 2019-01-20 18:30 | NUR ---
PT TAKEN TO RADIOLOGY FOR CT SCAN.
--- NOTE | 2019-01-20 18:47 | NUR ---
PT BACK IN ER FROM RADIOLOGY.
--- NOTE | 2019-01-20 19:12 | NUR ---
SHIFT REPORT GIVEN TO CHERISE Low RN. ER MD AT BEDSIDE FOR PT UPDATE.
[2019-01-20] MEDS ORDERED: DEXAMETHASONE SOD PHOSPHATE 4 MG INJ IV ONE (19:30)
[2019-01-20] MEDS ORDERED: METOCLOPRAMIDE HCL 10 MG/2 ML VIAL IV ONE (19:30)
--- NOTE | 2019-01-20 19:30 | NUR ---
pt was medicated time one with reglan 10 mg ivp, decadron 4mg ivp and a liter of normal saline bolus pt denies allergies medications teaching given, comfort and safety maintained
[2019-01-20] MEDS ORDERED: METOCLOPRAMIDE HCL 10 MG/2 ML VIAL ONE (19:39)
[2019-01-20] MEDS ORDERED: DEXAMETHASONE SOD PHOSPHATE 10 MG INJ ONE (19:41)
--- NOTE | 2019-01-20 20:00 | NUR ---
reassess pt condition stable n/v/d has subsided at this time
--- NOTE | 2019-01-20 20:37 | NUR ---
pt has been discharge to home with her significant other all personal belonging with pt hl removed site w/n/l overall appearances fair without complains
[2019-01-20 20:42] VITALS: BP 110/68
== END 2019-01-20 20:30 | disposition home or self-care (01) ==
LOC: ER 17:25
DX: R10.9 Unspecified abdominal pain (principal); J45.901 Unspecified asthma with (acute) exacerbation; Z79.899 Other long term (current) drug therapy
CPT/HCPCS: 36415; 71045; 74176; 80048; 80076; 81000; 81001; 83690; 84484; 84702; 85025; 85730; 87086; 93005; 94640; 96374; 96375; 99284; C9113; J1100; J1170; J2405; J2765; 70030-TC; A4663; J3590; J7030

== ENCOUNTER 2021-01-15 22:24 | Emergency (ER) | payer MEDICAID ==
[~2021-01-15] VITALS: Ht 172.7 cm; Wt 68.0 kg
[2021-01-15] MEDS ORDERED: FAMOTIDINE. 20 MG/2 ML VIAL IV ONE (22:43)
[2021-01-15] MEDS ORDERED: MORPHINE SULFATE 4 MG/1 ML DISP.SYRIN ONE (22:43)
[2021-01-15] MEDS ORDERED: ONDANSETRON 4 MG/2 ML VIAL ONE (22:44)
--- NOTE | 2021-01-15 23:00 | NUR ---
Patient presents to ED from home for RUQ pain. Pain is "so bad" - 03/31 - radiates towards her back and is described as sharp. A&Ox4. Able to make needs known and follow commands. Ambulatory. NSR on monitor. No chest pain, no diaphoresis, afebrile, no chills. Lungs clear bilaterally. Saturations >94% on room air. No SOB. GI/: Some loss of appetite, some nausea, some GI discomfort. No emesis or diarrhea. Addendum: 01/16/21 at 0012 by KMORADI *one episode of emesis earlier tonight
[2021-01-15 23:07] LABS: BASOPHILS # (AUTO) 0.1 K/uL (0.0-8.0); BASOPHILS % (AUTO) 0.7 % (0.0-2.0); EOSINOPHILS # (AUTO) 0.1 K/uL (0.0-0.7); EOSINOPHILS % (AUTO) 0.8 % (0.0-7.0); HEMATOCRIT 39.9 % (31.2-41.9); HEMOGLOBIN 13.3 g/dL (10.9-14.3); LYMPHOCYTES # (AUTO) 3.2 K/uL (20.0-40.0); LYMPHOCYTES % (AUTO) 27.2 % (20.5-51.5); MEAN CORPUSCULAR HEMOGLOBIN 29.5 uug (24.7-32.8); MEAN CORPUSCULAR HGB CONC 33 g/dL (32.3-35.6); MEAN CORPUSCULAR VOLUME 88.1 fL (75.5-95.3); MONOCYTES # (AUTO) 0.8 K/uL (2.0-10.0); NEUTROPHILS # (AUTO) 7.6 K/uL (1.8-8.9); NEUTROPHILS % (AUTO) 64.3 % (38.5-71.5); PLATELET COUNT (AUTO) 382 K/uL (179-408); RED BLOOD CELL COUNT(AUTO) 4.53 MIL/uL (3.63-4.92); WHITE BLOOD COUNT (AUTO) 11.8 K/uL (3.8-11.8)
[2021-01-15] MEDS: ONDANSETRON 4 MG/2 ML VIAL IV ONE (23:10)
[2021-01-15] MEDS: MORPHINE SULFATE 2 MG/1 ML DISP.SYRIN IV ONE (23:10)
[2021-01-15] MEDS: FAMOTIDINE. 20 MG/2 ML VIAL IV ONE (23:10)
[2021-01-15 23:12] LABS: POTASSIUM 3.8 mmol/L (3.5-5.1)
[2021-01-15 23:18] LABS: BILIRUBIN,DIRECT 0.1 mg/dL (0.0-0.2); BILIRUBIN,TOTAL 0.4 mg/dL (0.2-1.0); TOTAL PROTEIN, SERUM 7.1 g/dL (6.4-8.2)
--- NOTE | 2021-01-15 23:42 | NUR ---
Patient down for CT Abdomen at this time
--- NOTE | 2021-01-15 23:49 | NUR ---
Patient back from CT Abdomen at this time
[2021-01-16] MEDS: IV NORMAL SALINE 1000 ML BAG IV ONE (00:01)
[2021-01-16] MEDS ORDERED: TRAM50TA2 PO (00:49)
[2021-01-16] MEDS ORDERED: IBUP-1955 PO (00:49)
[2021-01-16] MEDS ORDERED: FAMO-132 PO (00:49)
[2021-01-16 00:56] LABS: *BILIRUBIN,URIN NEGATIVE (NEGATIVE); *BLOOD, URINE NEGATIVE (NEGATIVE); *CLARITY,URINE CLEAR (CLEAR); *COLOR,URINE YELLOW (YELLOW); *KETONES,URINE NEGATIVE (NEGATIVE); *UROBILINOGEN,URINE 0.2 E.U./dl (NORMAL); LEUKOCYTE ESTERASE ,URINE NEGATIVE (NEGATIVE); NITRITE, URINE NEGATIVE (NEGATIVE); UGLUCOSE NEGATIVE (NEGATIVE)
--- NOTE | 2021-01-16 00:59 | NUR ---
Patient resting in bed. No acute distress. VSS.
[2021-01-16 01:05] VITALS: BP 119/66
--- NOTE | 2021-01-16 01:15 | NUR ---
Patient discharged to home in stable condition. Written and verbal after care instructions given. Patient verbalizes understanding of instructions. Stressed follow up or return to ER for worsening s/s. All belongings with patient. VSS. Steady gait. Advised not to drive. All imaging/labs/diagnostics given.
== END 2021-01-16 01:21 | disposition home or self-care (01) ==
LOC: ER 22:25
DX: R10.9 Unspecified abdominal pain (principal); M54.9 Dorsalgia, unspecified; K21.9 Gastro-esophageal reflux disease without esophagitis; D25.9 Leiomyoma of uterus, unspecified; N88.8 Other specified noninflammatory disorders of cervix uteri; Z82.49 Family history of ischemic heart disease and other diseases of the circulatory system; Z87.11 Personal history of peptic ulcer disease; J45.909 Unspecified asthma, uncomplicated; Z79.899 Other long term (current) drug therapy; I49.1 Atrial premature depolarization
CPT/HCPCS: 36415; 71045; 74176; 76705; 80048; 80076; 81003; 83690; 84702; 85025; 93005; 96361; 96374; 96375; 99285; J2270; J2405; J3490; A4663; J7030

== ENCOUNTER 2021-05-16 19:22 | Emergency (ER) | payer MEDICAID ==
[~2021-05-16] VITALS: Ht 172.7 cm; Wt 66.7 kg
[~2021-05-16 19:22] MED LIST changes: +FAMO-132 PO; +IBUP-1955 PO; +TRAM50TA2 PO
--- NOTE | 2021-05-16 20:16 | NUR ---
Dr. Fox at bedside for MSE.
[2021-05-16 20:52] LABS: HEMATOCRIT 37.7 % (31.2-41.9); MEAN CORPUSCULAR HEMOGLOBIN 30.3 uug (24.7-32.8); MEAN CORPUSCULAR VOLUME 90.3 fL (75.5-95.3); PLATELET COUNT (AUTO) 372 K/uL (179-408)
[2021-05-16 20:59] LABS: CARBON DIOXIDE 33 mmol/L (21-32); CHLORIDE 107 mmol/L (98-107); CREATININE 1.1 mg/dL (0.6-1.3); GLUCOSE 92 mg/dL (74-106); POTASSIUM 4.2 mmol/L (3.5-5.1); UREA NITROGEN, BLOOD 15 mg/dL (7-18)
[2021-05-16 21:05] LABS: ALANINE AMINOTRANSFERASE 20 U/L (14-59); ALKALINE PHOSPHATASE 77 U/L (50-136); ASPARTATE AMINOTRANSFERASE 12 U/L (15-37); BILIRUBIN,TOTAL 0.1 mg/dL (0.2-1.0); TOTAL PROTEIN, SERUM 7.1 g/dL (6.4-8.2)
[2021-05-16 21:06] LABS: BILIRUBIN,DIRECT < 0.1 mg/dL (0.0-0.2)
--- NOTE | 2021-05-16 21:15 | NUR ---
Ultrasound at bedside.
[2021-05-16] MEDS ORDERED: DOXY100C5 PO (22:34)
[2021-05-16] MEDS ORDERED: ALBU6.7H9 INH (22:34)
--- NOTE | 2021-05-16 22:41 | NUR ---
Patient discharged to home in stable condition. Written and verbal after care instructions given. Patient verbalizes understanding of instructions. Stressed follow up or return to ER for worsening s/s. Patient out of ER with steady gait, no acute signs of distress, VSS, all belongings taken, provided with copies of lab and imaging results + CD.
[2021-05-16 22:42] VITALS: BP 121/80
== END 2021-05-16 22:42 | disposition home or self-care (01) ==
LOC: ER 19:22
DX: K22.6 Gastro-esophageal laceration-hemorrhage syndrome (principal); J40 Bronchitis, not specified as acute or chronic; D25.9 Leiomyoma of uterus, unspecified; K21.9 Gastro-esophageal reflux disease without esophagitis; Z91.018 Allergy to other foods; J44.9 Chronic obstructive pulmonary disease, unspecified
CPT/HCPCS: 36415; 76856; 85025; A4663